=== PATIENT | male | born 1995 | race Caucasian/White ===

== ENCOUNTER → 2020-01-07 | Outpatient (REF) ==
--- NOTE | 2020-01-07 10:14 | Diagnostic Imaging Report ---
EXAM: CHEST 1 VIEW, AP/PA ONLY INDICATION: Preemployment physical. COMPARISON: None. FINDINGS: Normal heart size and pulmonary vascularity. No dense consolidation, pleural effusion or pneumothorax. No acute osseous findings. IMPRESSION: Negative chest. Dictated by: Dictated on workstation # [id number]
== END ==
LOC: OCC 09:41
PROVIDERS: ATTEND Family Medicine
DX: Z02.1 Encounter for pre-employment examination (principal)
CPT/HCPCS: 71045